=== PATIENT | male | born 1970 | race Caucasian/White ===

== ENCOUNTER 2017-02-10 23:26 | Emergency (ER) | payer OTHER ==
[~2017-02-10] VITALS: Wt 79.4 kg
[2017-02-10 23:51] LABS: BASO # 0.1 10*3/uL (0.0-0.1); BASO % 0.6 % (0.0-1.0); EOS # 0.3 10*3/uL (0.0-0.4); HEMATOCRIT 49.5 % (42.0-52.0); HEMOGLOBIN 17.2 g/dl (14.0-18.0); LYMPH # 3.8 10*3/uL (1.3-4.4); LYMPH % 33.3 % (27.0-41.0); MEAN CELL VOLUME 96.7 fl (80.0-94.0); MEAN CORPUSCULAR HGB 33.6 pg (27.0-31.0); MEAN CORPUSCULAR HGB CONC 34.7 g/dl (33.0-37.0); MEAN PLATELET VOLUME 10.3 fl (9.6-12.3); MONO # 0.7 10*3/uL (0.1-1.0); NEUT # 6.5 10*3/uL (2.3-7.9); NEUT % 56.8 % (47.0-73.0); PLATELET COUNT AUTOMATED 182 10*3/uL (130-400); RED BLOOD COUNT 5.12 10*6/uL (4.50-5.90); RED CELL DISTRI WIDTH 12.8 % (0-14.5); WHITE BLOOD COUNT 11.5 10*3/uL (4.8-10.8)
[2017-02-10 23:52] LABS: ALBUMIN 3.5 gm/dl (3.1-4.5); ALKALINE PHOSPHATASE 80 U/L (45-117); BUN 5 mg/dl (7-24); CHLORIDE 101 mmol/L (98-107); CREATININE 0.86 mg/dL (0.70-1.30); POTASSIUM 3.8 mmol/L (3.5-5.1); SGOT/AST 30 IU/L (3-35); SGPT/ALT 26 U/L (12-78); SODIUM 139 mmol/L (136-145); TOTAL PROTEIN 8.2 gm/dL (6.4-8.2)
== END 2017-02-11 02:23 | disposition left against medical advice (07) ==
LOC: ED 23:26
PROVIDERS: Student in an Organized Health Care Education/Training Program
DX: S01.81XA Laceration without foreign body of other part of head, initial encounter (principal); S01.21XA Laceration without foreign body of nose, initial encounter; F10.129 Alcohol abuse with intoxication, unspecified; V57.5XXA Driver of pick-up truck or van injured in collision with fixed or stationary object in traffic accident, initial encounter; Y93.89 Activity, other specified; Y92.413 State road as the place of occurrence of the external cause; Y99.8 Other external cause status

== ENCOUNTER 2017-02-16 10:34 | Emergency (ER) | payer OTHER ==
[~2017-02-16] VITALS: Wt 79.4 kg
[2017-02-16] MEDS ORDERED: Zofran4 MG PO (12:20)
[2017-02-16] MEDS ORDERED: PAIN RELIEVER325 MG PO (12:20)
== END 2017-02-17 09:23 | disposition home or self-care (01) ==
LOC: ED 10:34
DX: S20.212A Contusion of left front wall of thorax, initial encounter (principal); S00.81XA Abrasion of other part of head, initial encounter; S09.90XA Unspecified injury of head, initial encounter; F17.200 Nicotine dependence, unspecified, uncomplicated; V49.88XA Car occupant (driver) (passenger) injured in other specified transport accidents, initial encounter; Y93.89 Activity, other specified; Y92.413 State road as the place of occurrence of the external cause; Y99.9 Unspecified external cause status

== ENCOUNTER 2021-09-15 04:50 | Emergency (ER) | payer OTHER ==
[~2021-09-15 04:50] MED LIST: PAIN RELIEVER325 MG PO; Zofran4 MG PO
== END 2021-09-15 05:33 | disposition home or self-care (01) ==
LOC: ED 04:50
DX: T75.4XXA Electrocution, initial encounter (principal); M79.641 Pain in right hand; Z79.899 Other long term (current) drug therapy; W86.8XXA Exposure to other electric current, initial encounter; Y93.89 Activity, other specified; Y92.89 Other specified places as the place of occurrence of the external cause; Y99.0 Civilian activity done for income or pay

== ENCOUNTER 2023-12-08 06:50 | Emergency (ER) | payer SELFPAY ==
[~2023-12-08] VITALS: Ht 165.1 cm; Wt 61.2 kg
[2023-12-08] MEDS ORDERED: NITROGLYCERIN 0.4 MG BOT SL ONE (07:10)
[2023-12-08] MEDS ORDERED: TICAGRELOR 90 MG TABLET PO ONE (07:25)
[2023-12-08] MEDS ORDERED: ASPIRIN, CHEWABLE 81 MG TAB PO ONE (07:25)
[2023-12-08 08:51] LABS: BASO % 0.2 % (0.0-1.0); EOS % 0.1 % (1.0-4.0); HEMATOCRIT 41.2 % (42.0-52.0); LYMPH # 1.1 10*3/uL (1.3-4.4); LYMPH % 8.5 % (27.0-41.0); MEAN CELL VOLUME 103.8 fl (80.0-94.0); MEAN CORPUSCULAR HGB 33.8 pg (27.0-31.0); MEAN CORPUSCULAR HGB CONC 32.5 g/dl (33.0-37.0); MEAN PLATELET VOLUME 10.4 fl (9.6-12.3); MONO # 0.3 10*3/uL (0.1-1.0); MONO % 2.5 % (3.0-9.0); NEUT # 11.9 10*3/uL (2.3-7.9); NEUT % 88.2 % (47.0-73.0); PLATELET COUNT AUTOMATED 153 10*3/uL (130-400); RED BLOOD COUNT 3.97 10*6/uL (4.50-5.90); RED CELL DISTRI WIDTH 13.5 % (0-14.5); WHITE BLOOD COUNT 13.5 10*3/uL (4.8-10.8)
[2023-12-08 09:15] LABS: ALKALINE PHOSPHATASE 69 U/L (46-116); BUN 9 mg/dl (9-23); CHLORIDE 106 mmol/L (98-107); POTASSIUM 4.1 mmol/L (3.4-5.1); SGPT/ALT 19 U/L (5-49); TOTAL PROTEIN 6.9 gm/dL (6.0-8.0)
== END 2023-12-08 09:45 | disposition short-term general hospital (02) ==
LOC: ED 06:50
PROVIDERS: Emergency Medicine
DX: I21.3 ST elevation (STEMI) myocardial infarction of unspecified site (principal); M79.631 Pain in right forearm

== ENCOUNTER 2023-12-25 11:46 | Emergency (ER) | payer SELFPAY ==
[~2023-12-25] VITALS: Ht 165.1 cm; Wt 59.0 kg
[2023-12-25] MEDS ORDERED: Ondansetron Hydrochloride 4 MG/2 ML VIAL IV ONE (12:10)
[2023-12-25] MEDS ORDERED: MORPHINE Sulfate 2 MG/ML SYR IV ONE (12:10)
[2023-12-25] MEDS ORDERED: FUROSEMIDE 40 MG/4 ML VIAL IV ONE (12:10)
[2023-12-25 12:20] LABS: BASO # 0.1 10*3/uL (0.0-0.1); BASO % 0.5 % (0.0-1.0); EOS # 0.4 10*3/uL (0.0-0.4); EOS % 3.3 % (1.0-4.0); HEMATOCRIT 38.2 % (42.0-52.0); LYMPH % 17.8 % (27.0-41.0); MEAN CELL VOLUME 102.4 fl (80.0-94.0); MEAN CORPUSCULAR HGB 33.5 pg (27.0-31.0); MEAN CORPUSCULAR HGB CONC 32.7 g/dl (33.0-37.0); MEAN PLATELET VOLUME 10.6 fl (9.6-12.3); MONO # 0.7 10*3/uL (0.1-1.0); MONO % 6.4 % (3.0-9.0); NEUT # 7.8 10*3/uL (2.3-7.9); NEUT % 71.5 % (47.0-73.0); PLATELET COUNT AUTOMATED 206 10*3/uL (130-400); RED BLOOD COUNT 3.73 10*6/uL (4.50-5.90); RED CELL DISTRI WIDTH 13.8 % (0-14.5); WHITE BLOOD COUNT 10.9 10*3/uL (4.8-10.8)
[2023-12-25 12:45] LABS: BUN 6 mg/dl (9-23); CHLORIDE 108 mmol/L (98-107); POTASSIUM 3.6 mmol/L (3.4-5.1)
[2023-12-25] MEDS ORDERED: LASIX20 MG PO (13:14)
== END 2023-12-25 13:18 | disposition home or self-care (01) ==
LOC: ED 11:46
PROVIDERS: Emergency Medicine
DX: I89.0 Lymphedema, not elsewhere classified (principal)

== ENCOUNTER 2024-01-31 12:27 | Inpatient (IN) | payer SELFPAY ==
[~2024-01-31] VITALS: Ht 165.1 cm; Wt 70.5 kg
[~2024-01-31 12:27] MED LIST changes: +LASIX20 MG PO
[2024-01-31 12:40] VITALS: BP 116/68
[2024-01-31 13:01] LABS: BASO # 0.1 10*3/uL (0.0-0.1); BASO % 0.6 % (0.0-1.0); EOS # 0.3 10*3/uL (0.0-0.4); EOS % 2.5 % (1.0-4.0); HEMATOCRIT 46.9 % (42.0-52.0); LYMPH # 1.8 10*3/uL (1.3-4.4); LYMPH % 17.5 % (27.0-41.0); MEAN CELL VOLUME 100.6 fl (80.0-94.0); MEAN CORPUSCULAR HGB 33.5 pg (27.0-31.0); MEAN CORPUSCULAR HGB CONC 33.3 g/dl (33.0-37.0); MEAN PLATELET VOLUME 10.7 fl (9.6-12.3); MONO # 0.6 10*3/uL (0.1-1.0); NEUT # 7.4 10*3/uL (2.3-7.9); PLATELET COUNT AUTOMATED 204 10*3/uL (130-400); RED BLOOD COUNT 4.66 10*6/uL (4.50-5.90); RED CELL DISTRI WIDTH 13.7 % (0-14.5); WHITE BLOOD COUNT 10.1 10*3/uL (4.8-10.8)
[2024-01-31 13:12] LABS: ACT PARTIAL THROMBO TIME 25.4 SECONDS (20.0-32.1)
[2024-01-31 13:25] LABS: ALKALINE PHOSPHATASE 83 U/L (46-116); BUN < 5 mg/dl (9-23); CHLORIDE 103 mmol/L (98-107); LIPASE 50 U/L (12-53); POTASSIUM 4.1 mmol/L (3.4-5.1); SGPT/ALT 14 U/L (5-49); TOTAL PROTEIN 7.5 gm/dL (6.0-8.0)
[2024-01-31] MEDS ORDERED: BRILINTA90 M1 PO (13:45)
[2024-01-31] MEDS ORDERED: BISOPROLOL FUMAR5 MG PO (13:46)
[2024-01-31] MEDS ORDERED: ALDACTONE25 M1 PO (13:46)
[2024-01-31] MEDS ORDERED: ASPIRIN81 M1 PO (13:46)
[2024-01-31] MEDS ORDERED: LIPITOR40 MG PO (13:46)
[2024-01-31 14:48] VITALS: BP 114/70
[2024-01-31 16:29] VITALS: BP 102/62
[2024-01-31] MEDS ORDERED: BISACODYL 10 MG SUPP R PRN (16:35)
[2024-01-31] MEDS ORDERED: BISACODYL 5 MG TAB PO PRN (16:35)
[2024-01-31] MEDS ORDERED: Magnesium Hydroxide 30 ML UDC PO PRN (16:35)
[2024-01-31] MEDS ORDERED: Ondansetron Hydrochloride 4 MG/2 ML VIAL IV PRN (16:35)
[2024-01-31] MEDS ORDERED: ACETAMINOPHEN 325 MG TAB PO PRN (16:45)
[2024-01-31] MEDS ORDERED: Acetaminophen/Hydrocodone HP 10/325 PO PRN (16:45)
[2024-01-31 19:29] VITALS: BP 108/61
[2024-01-31] MEDS ORDERED: TICAGRELOR 90 MG TABLET PO SCH (22:00)
[2024-02-01] VITALS (7 sets, daily range): BP systolic 76–124; BP diastolic 58–85
[2024-02-01 06:53] LABS: BASO # 0.1 10*3/uL (0.0-0.1); BASO % 0.5 % (0.0-1.0); EOS # 0.4 10*3/uL (0.0-0.4); EOS % 4.7 % (1.0-4.0); HEMATOCRIT 44.6 % (42.0-52.0); LYMPH % 21.3 % (27.0-41.0); MEAN CORPUSCULAR HGB 33.2 pg (27.0-31.0); MEAN CORPUSCULAR HGB CONC 33.2 g/dl (33.0-37.0); MEAN PLATELET VOLUME 10.7 fl (9.6-12.3); MONO # 0.7 10*3/uL (0.1-1.0); MONO % 6.9 % (3.0-9.0); NEUT # 6.2 10*3/uL (2.3-7.9); NEUT % 66.2 % (47.0-73.0); PLATELET COUNT AUTOMATED 206 10*3/uL (130-400); RED BLOOD COUNT 4.46 10*6/uL (4.50-5.90); RED CELL DISTRI WIDTH 13.7 % (0-14.5); WHITE BLOOD COUNT 9.4 10*3/uL (4.8-10.8)
[2024-02-01 08:24] LABS: BUN 6 mg/dl (9-23); CHLORIDE 104 mmol/L (98-107); CHOLESTEROL 169 mg/dL (<200); LDL CHOLESTEROL 103 mg/dL (9-159); POTASSIUM 3.8 mmol/L (3.4-5.1); TRIGLYCERIDES 101 mg/dl (<150)
[2024-02-01] MEDS ORDERED: Enoxaparin Sodium 40 MG/0.4 ML SYR SC SCH (10:00)
[2024-02-01] MEDS ORDERED: SPIRONOLACTONE 25 MG TAB PO SCH (10:00)
[2024-02-01] MEDS ORDERED: ATENOLOL 25 MG TAB PO SCH (10:00)
[2024-02-01] MEDS ORDERED: ASPIRIN ENTERIC COATED 81 MG TAB PO SCH (10:00)
[2024-02-01] MEDS ORDERED: ATORVASTATIN CALCIUM 40 MG TABLET PO SCH (10:00)
[2024-02-02] VITALS: BP 108/75
[2024-02-02 08:00] VITALS: BP 110/64
[2024-02-02] MEDS ORDERED: METOPROLOL SUCCINATE XR 25 MG TAB PO SCH (10:00)
[2024-02-02] MEDS ORDERED: Losartan Potassium 25 MG TAB PO SCH (11:50)
[2024-02-02 12:00] VITALS: BP 126/72
[2024-02-02] MEDS ORDERED: FUROSEMIDE 40 MG/4 ML VIAL IV SCH (15:55)
[2024-02-02 16:00] VITALS: BP 112/59
[2024-02-02 20:00] VITALS: BP 110/77
[2024-02-03] VITALS: BP 118/67
[2024-02-03 06:05] LABS: BUN 8 mg/dl (9-23); CHLORIDE 105 mmol/L (98-107)
[2024-02-03 06:19] LABS: BASO % 0.4 % (0.0-1.0); EOS # 0.2 10*3/uL (0.0-0.4); EOS % 2.5 % (1.0-4.0); HEMATOCRIT 44.4 % (42.0-52.0); LYMPH # 2.2 10*3/uL (1.3-4.4); LYMPH % 23.8 % (27.0-41.0); MEAN CORPUSCULAR HGB 33.3 pg (27.0-31.0); MEAN PLATELET VOLUME 10.9 fl (9.6-12.3); MONO # 0.8 10*3/uL (0.1-1.0); MONO % 8.3 % (3.0-9.0); NEUT % 64.5 % (47.0-73.0); PLATELET COUNT AUTOMATED 204 10*3/uL (130-400); RED BLOOD COUNT 4.53 10*6/uL (4.50-5.90); RED CELL DISTRI WIDTH 13.7 % (0-14.5); WHITE BLOOD COUNT 9.4 10*3/uL (4.8-10.8)
[2024-02-03 08:00] VITALS: BP 101/61
[2024-02-03] MEDS ORDERED: METOPROLOL SUCCINATE XR 25 MG TAB PO SCH (10:00)
[2024-02-03 12:00] VITALS: BP 113/66; BP 124/77
[2024-02-03] MEDS ORDERED: BRILINTA90 M1 PO (14:42)
[2024-02-03] MEDS ORDERED: METOPROLOL SUCC25 M2 PO (14:42)
[2024-02-03] MEDS ORDERED: ALDACTONE25 M1 PO (14:42)
[2024-02-03] MEDS ORDERED: LIPITOR40 MG PO (14:42)
[2024-02-03] MEDS ORDERED: ASPIRIN81 M1 PO (14:42)
== END 2024-02-03 16:47 | disposition home or self-care (01) | DRG 303 ==
LOC: ED 12:27 → 4E 15:34 → EDHOLD 15:34 → 4E 02-01 15:54
PROVIDERS: Internal Medicine; Student in an Organized Health Care Education/Training Program; ADMIT Student in an Organized Health Care Education/Training Program; ATTEND Student in an Organized Health Care Education/Training Program
DX: I25.10 Atherosclerotic heart disease of native coronary artery without angina pectoris (principal); E87.1 Hypo-osmolality and hyponatremia; I50.20 Unspecified systolic (congestive) heart failure; I51.7 Cardiomegaly; I34.0 Nonrheumatic mitral (valve) insufficiency; D75.89 Other specified diseases of blood and blood-forming organs; Z95.5 Presence of coronary angioplasty implant and graft; Z82.49 Family history of ischemic heart disease and other diseases of the circulatory system; Z91.148 Patient's other noncompliance with medication regimen for other reason

== ENCOUNTER → 2024-04-05 | Outpatient (CLI) | payer MEDICAID ==
[~2024-04-05] MED LIST changes: +ALDACTONE25 M1 PO; +ASPIRIN81 M1 PO; +BISOPROLOL FUMAR5 MG PO; +BRILINTA90 M1 PO; +LIPITOR40 MG PO; +METOPROLOL SUCC25 M2 PO
[2024-04-05 10:59] LABS: BUN 10 mg/dl (9-23); CHLORIDE 99 mmol/L (98-107)
== END | disposition home or self-care (01) ==
LOC: LAB 09:54
PROVIDERS: ATTEND Internal Medicine Cardiovascular Disease
DX: I21.02 ST elevation (STEMI) myocardial infarction involving left anterior descending coronary artery (principal); I25.5 Ischemic cardiomyopathy; R60.0 Localized edema; I50.23 Acute on chronic systolic (congestive) heart failure

== ENCOUNTER 2025-06-05 15:37 | Emergency (ER) | payer MEDICAID ==
[~2025-06-05] VITALS: Wt 74.4 kg
[2025-06-05] MEDS ORDERED: Tdap Vaccine 0.5 ML SYR (Adult Vaccine) IM ONE (15:50)
[2025-06-05] MEDS ORDERED: SODIUM CHLORIDE 0.9% 1,000 ML IV ONE ×2 (15:50→19:40)
[2025-06-05] MEDS ORDERED: ceFAZolin sodium 2 GM in SYRINGE INFUSION 20 ML IV ONE (15:50)
[2025-06-05] MEDS ORDERED: IOHEXOL 300 MG/ML 100 ML VIAL IV ONE (15:55)
[2025-06-05] MEDS ORDERED: ceFAZolin sodium/sodium chlor 20 ML IV ONE (15:55)
[2025-06-05] MEDS ORDERED: SODIUM CHLORIDE 0.9% 100 ML BAG IV ONE (15:55)
[2025-06-05] MEDS ORDERED: IOHEXOL 350 MG/ML 100 ML VIAL IV ONE ×2 (15:55→16:51)
[2025-06-05 16:09] LABS: BASO # 0.1 10*3/uL (0.0-0.1); BASO % 0.5 % (0.0-1.0); EOS # 0.0 10*3/uL (0.0-0.4); EOS % 0.3 % (1.0-4.0); MEAN CELL VOLUME 101.0 fl (80.0-94.0); MEAN CORPUSCULAR HGB 35.6 pg (27.0-31.0); MEAN PLATELET VOLUME 10.4 fl (9.6-12.3); MONO # 0.8 10*3/uL (0.1-1.0); MONO % 5.2 % (3.0-9.0); NEUT # 13.2 10*3/uL (2.3-7.9); NEUT % 85.5 % (47.0-73.0); NUCLEATED RED BLOOD CELL 0.0 % (0.0-0.0); NUCLEATED RED BLOOD CELL 0.0 10*3/uL (0.0-0.0); PLATELET COUNT AUTOMATED 159 10*3/uL (130-400); RED CELL DISTRI WIDTH 12.9 % (0-14.5)
[2025-06-05] MEDS ORDERED: CLOPIDOGREL75 MG PO (16:13)
[2025-06-05] MEDS ORDERED: Ondansetron Hydrochloride 4 MG/2 ML VIAL IV ONE ×2 (16:35→18:35)
[2025-06-05] MEDS ORDERED: HYDROmorphONE Hydrochloride 0.5 MG/0.5 ML SYRINGE IV ONE (16:35)
[2025-06-05 16:48] LABS: BUN 6 mg/dl (9-23); ETHYL ALCOHOL 13.8 mg/dl (<3); SGPT/ALT 47 U/L (5-49)
[2025-06-05] MEDS ORDERED: SODIUM CHLORIDE 0.9% 100 ML IV ONE (16:51)
== END 2025-06-05 19:54 | disposition short-term general hospital (02) ==
LOC: ED 15:37
PROVIDERS: Emergency Medicine
DX: S22.41XA Multiple fractures of ribs, right side, initial encounter for closed fracture (principal); S32.009A Unspecified fracture of unspecified lumbar vertebra, initial encounter for closed fracture; S01.01XA Laceration without foreign body of scalp, initial encounter; S09.90XA Unspecified injury of head, initial encounter; N28.0 Ischemia and infarction of kidney; X50.9XXA Other and unspecified overexertion or strenuous movements or postures, initial encounter; Y93.89 Activity, other specified; Y92.89 Other specified places as the place of occurrence of the external cause; Y99.8 Other external cause status